=== PATIENT | female | born 1975 | race Hispanic/Latino ===

== ENCOUNTER → 2017-02-19 | Outpatient (CLI) | payer OTHER ==
[~2017-02-19] VITALS: Ht 157.5 cm; Wt 85.7 kg
[~2017-02-19] MED LIST: IBUPROFEN800 MG PO; NOHOMEMEDS; PRENATAL TABLE1 EACH PO
[2017-02-20 16:56] LABS: INTERNAL CONTROL VALID? YES
== END | disposition home or self-care (01) ==
LOC: AMB 11:13
PROVIDERS: Anesthesiology
DX: K29.70 Gastritis, unspecified, without bleeding (principal); B96.81 Helicobacter pylori [H. pylori] as the cause of diseases classified elsewhere; R13.10 Dysphagia, unspecified; K62.5 Hemorrhage of anus and rectum; R10.32 Left lower quadrant pain; K64.8 Other hemorrhoids; K59.00 Constipation, unspecified
CPT/HCPCS: 84703; 88305; 88342 TC

== ENCOUNTER 2017-07-23 22:29 | Emergency (ER) | payer OTHER ==
[~2017-07-23] VITALS: Ht 154.9 cm; Wt 90.0 kg
[2017-07-23 22:57] LABS: HEMATOCRIT 37.7 % (36.0-46.0); HEMOGLOBIN 12.8 G/DL (11.9-15.5); MCH 28.6 PG (29.0-34.0); MCV 84.3 FL (83-99); PLATELET COUNT 349 K/uL (156-360); RBC DIS.WIDTH-CV 12.8 % (11.8-14.6); RBC DIS.WIDTH-SD 38.9 % (39-53); RED BLOOD COUNT 4.47 M/uL (3.80-5.20); WHITE BLOOD COUNT 9.9 K/uL (4.1-10.2)
[2017-07-23 23:11] LABS: CHLORIDE 106 mEq/L (99-109); POTASSIUM 3.5 mEq/L (3.7-5.4); SODIUM 140 mEq/L (136-147)
[2017-07-23 23:13] LABS: GLUCOSE 98 mg/dL (70-99)
[2017-07-23 23:16] LABS: CREATININE 0.7 mg/dL (0.6-1.3); GFR ESTIMATE (CALCULATED) > 59 mL/min/
[2017-07-23 23:17] LABS: UREA NITROGEN (BUN) 9 mg/dL (9-23)
[2017-07-23 23:22] LABS: TROP-I INTERPRETATION NEGATIVE; TROPONIN-I < 0.01 ng/mL (0.0-0.30)
[2017-07-23 23:24] LABS: QUANTITATIVE HCG 4.8 MIU/ML
[2017-07-24 02:09] LABS: TROP-I INTERPRETATION NEGATIVE; TROPONIN-I < 0.01 ng/mL (0.0-0.30)
[2017-07-24 02:31] LABS: APPEARANCE CLEAR ((CLEAR)); BILIRUBIN NEGATIVE; BLOOD NEGATIVE; COLOR YELLOW ((YELLOW)); GLUCOSE (STRIP) NEGATIVE; KETONES NEGATIVE; LEUKOCYTES SMALL; NITRITE NEGATIVE; PROTEIN (STRIP) NEGATIVE; SPECIFIC GRAVITY 1.012 (1.000-1.030); UROBILINOGEN 0.2 MG/DL (0.2-1.0)
[2017-07-24 02:34] LABS: BACTERIA RARE /HPF; EPITHELIAL CELLS 1+ /HPF; MUCUS TRACE /LPF; RED BLOOD CELLS 0-5 /HPF (0-5); UCUL ADDED? NO; WHITE BLOOD CELLS 0-5 /HPF (0-5)
[2017-07-24] MEDS ORDERED: PEPCID20 MG PO (02:45)
[2017-07-24 03:40] VITALS: BP 132/63
== END 2017-07-24 04:06 | disposition home or self-care (01) ==
LOC: EME 22:29
PROVIDERS: Emergency Medicine
DX: R07.89 Other chest pain (principal); I49.3 Ventricular premature depolarization; M54.9 Dorsalgia, unspecified; R10.84 Generalized abdominal pain; R00.2 Palpitations; Z82.49 Family history of ischemic heart disease and other diseases of the circulatory system; Z87.440 Personal history of urinary (tract) infections
CPT/HCPCS: 71046; 80048; 81003; 84484; 84702; 85027; 93005; 99281; 99285; J1885; J2405; J7030

== ENCOUNTER 2017-08-21 10:50 | Emergency (ER) | payer OTHER ==
[~2017-08-21] VITALS: Ht 154.9 cm; Wt 86.9 kg
[~2017-08-21 10:50] MED LIST changes: +PEPCID20 MG PO
[2017-08-21 11:35] LABS: APPEARANCE SL.HAZY ((CLEAR)); BILIRUBIN NEGATIVE; BLOOD SMALL; COLOR YELLOW ((YELLOW)); GLUCOSE (STRIP) NEGATIVE; KETONES NEGATIVE; LEUKOCYTES SMALL; NITRITE NEGATIVE; PROTEIN (STRIP) NEGATIVE; SPECIFIC GRAVITY 1.023 (1.000-1.030); UROBILINOGEN 0.2 MG/DL (0.2-1.0)
[2017-08-21 11:36] LABS: HEMATOCRIT 40.3 % (36.0-46.0); HEMOGLOBIN 13.9 G/DL (11.9-15.5); MCHC 34.5 G/DL (30.0-36.0); PLATELET COUNT 325 K/uL (156-360); RBC DIS.WIDTH-CV 13.1 % (11.8-14.6); RBC DIS.WIDTH-SD 39.7 % (39-53)
[2017-08-21 11:39] LABS: BACTERIA NONE SEEN /HPF; EPITHELIAL CELLS 1+ /HPF; MUCUS TRACE /LPF; UCUL ADDED? NO; WHITE BLOOD CELLS 0-5 /HPF (0-5)
[2017-08-21 11:43] LABS: ALBUMIN 4.2 g/dL (3.2-4.8)
[2017-08-21 11:44] LABS: CHLORIDE 102 mEq/L (99-109); POTASSIUM 4.3 mEq/L (3.7-5.4); SODIUM 137 mEq/L (136-147)
[2017-08-21 11:46] LABS: GLUCOSE 102 mg/dL (70-99); TOTAL PROTEIN 7.2 g/dL (6.4-8.3)
[2017-08-21 11:48] LABS: TOTAL BILIRUBIN 1.6 mg/dL (0.0-1.0)
[2017-08-21 11:49] LABS: ALKALINE PHOSPHATASE 95 IU/L (3-129)
[2017-08-21 11:50] LABS: CREATININE 0.7 mg/dL (0.6-1.3); GFR ESTIMATE (CALCULATED) > 59 mL/min/
[2017-08-21 11:51] LABS: AST (GOT) 19 IU/L (2-34); UREA NITROGEN (BUN) 12 mg/dL (9-23)
[2017-08-21 11:52] LABS: ALT (GPT) 18 IU/L (3-49)
[2017-08-21 11:58] LABS: QUANTITATIVE HCG < 4.0 MIU/ML
[2017-08-21 12:13] LABS: LIPASE 24 U/L (1.0-51.0)
[2017-08-21] MEDS ORDERED: ZOFRAN ODT4 MG PO (14:39)
[2017-08-21] MEDS ORDERED: BENTYL10 MG PO (14:39)
[2017-08-21 14:52] VITALS: BP 108/63
== END 2017-08-21 15:27 | disposition home or self-care (01) ==
LOC: EME 10:50
DX: R10.9 Unspecified abdominal pain (principal); R11.2 Nausea with vomiting, unspecified; R19.7 Diarrhea, unspecified; R31.9 Hematuria, unspecified; Z87.440 Personal history of urinary (tract) infections
CPT/HCPCS: 71046; 74176; 76705; 80053; 81003; 83690; 84702; 85027; 99281; 99284; J2405; J3010; J7030

== ENCOUNTER 2017-10-15 07:20 | Emergency (ER) | payer OTHER ==
[~2017-10-15] VITALS: Ht 157.5 cm; Wt 85.4 kg
[~2017-10-15 07:20] MED LIST changes: +BENTYL10 MG PO; +ZOFRAN ODT4 MG PO
[2017-10-15 07:52] LABS: HEMATOCRIT 40.1 % (36.0-46.0); HEMOGLOBIN 14.2 G/DL (11.9-15.5); MCH 30.1 PG (29.0-34.0); MCHC 35.4 G/DL (30.0-36.0); MCV 85.1 FL (83-99); PLATELET COUNT 302 K/uL (156-360); RBC DIS.WIDTH-CV 13.2 % (11.8-14.6); RBC DIS.WIDTH-SD 41.3 % (39-53); RED BLOOD COUNT 4.71 M/uL (3.80-5.20); WHITE BLOOD COUNT 16.9 K/uL (4.1-10.2)
[2017-10-15 07:57] LABS: APPEARANCE CLOUDY ((CLEAR)); BILIRUBIN NEGATIVE; BLOOD SMALL; COLOR YELLOW ((YELLOW)); GLUCOSE (STRIP) NEGATIVE; KETONES NEGATIVE; LEUKOCYTES MODERATE; NITRITE NEGATIVE; PROTEIN (STRIP) NEGATIVE; SPECIFIC GRAVITY 1.023 (1.000-1.030); UROBILINOGEN 0.2 MG/DL (0.2-1.0)
[2017-10-15 08:03] LABS: ALBUMIN 4.1 g/dL (3.2-4.8); CHLORIDE 104 mEq/L (99-109); POTASSIUM 4.5 mEq/L (3.7-5.4); SODIUM 135 mEq/L (136-147)
[2017-10-15 08:06] LABS: GLUCOSE 132 mg/dL (70-99); TOTAL PROTEIN 7.9 g/dL (6.4-8.3)
[2017-10-15 08:09] LABS: ALKALINE PHOSPHATASE 117 IU/L (3-129); CREATININE 0.9 mg/dL (0.6-1.3); GFR ESTIMATE (CALCULATED) > 59 mL/min/
[2017-10-15 08:10] LABS: UREA NITROGEN (BUN) 9 mg/dL (9-23)
[2017-10-15 08:11] LABS: AST (GOT) 44 IU/L (2-34)
[2017-10-15 08:12] LABS: ALT (GPT) 49 IU/L (3-49)
[2017-10-15 08:13] LABS: LIPASE 12 U/L (1.0-51.0)
[2017-10-15 08:18] LABS: QUANTITATIVE HCG < 4.0 MIU/ML
[2017-10-15 08:55] LABS: AMORPHOUS URATES CRYSTALS 2+; BACTERIA 1+ /HPF; EPITHELIAL CELLS 1+ /HPF; MUCUS NONE SEEN /LPF; RED BLOOD CELLS NONE SEEN /HPF (0-5); UCUL ADDED? NO; WHITE BLOOD CELLS NONE SEEN /HPF (0-5)
[2017-10-15 11:13] LABS: C DIFF TOXIN NEGATIVE (NEGATIVE)
[2017-10-15] MEDS ORDERED: FLAGYL500 MG PO (12:10)
[2017-10-15] MEDS ORDERED: CIPRO500 MG PO (12:10)
[2017-10-15] MEDS ORDERED: ZOFRAN ODT4 MG PO (12:10)
[2017-10-15 12:32] VITALS: BP 97/61
== END 2017-10-15 12:33 | disposition home or self-care (01) ==
LOC: EME 07:20
PROVIDERS: Physician Assistant
DX: K52.9 Noninfective gastroenteritis and colitis, unspecified (principal); J45.909 Unspecified asthma, uncomplicated
CPT/HCPCS: 74177; 80053; 81003; 83605; 83630; 83690; 84702; 85027; 87040; 87045; 87077; 87177; 87329; 87493; 87506; 99281; 99284; J1885; J2405; J3010; J7030